=== PATIENT | female | born 1985 | race Caucasian/White ===

== ENCOUNTER 2016-12-02 16:18 | Emergency (ER) | payer SELFPAY ==
[2016-12-02 16:24] VITALS: BP 140/74
--- NOTE | 2016-12-02 17:14 | ER Document Report ---
ED Skin Rash/Insect Bite/Abscs - General Chief Complaint: Rash Stated Complaint: HAND PAIN Time Seen by Provider: 12/02/16 17:05 Mode of Arrival: Ambulatory Information source: Patient Notes: This is a 31-year-old female who presents with dry itchy and painful rash to her bilateral hands that has been present off and on for the past 6 months. The rash seems to be exacerbated by certain soaps. Patient has not seen her primary care physician for this. TRAVEL OUTSIDE OF THE [place] IN LAST 30 DAYS: No - Related Data Allergies/Adverse Reactions: milk Allergy (Verified 12/02/16 16:22) Penicillins Allergy (Verified 12/02/16 16:22) Past Medical History - Social History Smoking Status: Never Smoker Chew tobacco use (# tins/day): No Frequency of alcohol use: None Drug Abuse: None Family History: Reviewed & Not Pertinent Patient has suicidal ideation: No Patient has homicidal ideation: No Renal/ Medical History: Denies: Hx Peritoneal Dialysis Surgical Hx: Negative - Immunizations Hx Diphtheria, Pertussis, Tetanus Vaccination: No Review of Systems - Review of Systems Constitutional: No symptoms reported. denies: Chills, Fever EENT: No symptoms reported Cardiovascular: No symptoms reported Respiratory: No symptoms reported Gastrointestinal: No symptoms reported Genitourinary: No symptoms reported Musculoskeletal: No symptoms reported Skin: See HPI Hematologic/Lymphatic: No symptoms reported Neurological/Psychological: No symptoms reported Physical Exam - Vital signs Vitals: Temp Pulse Resp BP Pulse Ox 97.4 F 104 H 22 H 140/74 H 99 12/02/16 16:22 12/02/16 16:22 12/02/16 16:22 12/02/16 16:22 12/02/16 16:22 - General General appearance: Appears well In distress: None - HEENT Head: Normocephalic, Atraumatic Eyes: Normal - Respiratory Respiratory status: No respiratory distress Breath sounds: Normal - Cardiovascular Rhythm: Regular Heart sounds: Normal auscultation - Skin Skin Temperature: Warm Skin Moisture: Dry - Dry, scaly skin to bilateral palms most pronounced distally at base of fingers. No vessicles or papules. No drainage. DNVI. Course - Vital Signs Vital signs: Temp Pulse Resp BP Pulse Ox 97.4 F 104 H 22 H 140/74 H 99 12/02/16 16:22 12/02/16 16:22 12/02/16 16:22 12/02/16 16:22 12/02/16 16:22 Discharge - Discharge Clinical Impression: Hand eczema Condition: Stable Disposition: HOME, SELF-CARE Additional Instructions: Your rash is consistent with hand eczema. Avoid alcohol based hand sanitizers or any harsh soaps. Use the steroid cream as directed. Benadryl may help as well with the itching, as we discussed. Prescriptions: Triamcinolone Acetonide 15 gm TP BID #1 cream.gm.
== END 2016-12-02 17:17 | disposition home or self-care (01) ==
LOC: ER 16:18
DX: L30.9 Dermatitis, unspecified (principal); Z91.011 Allergy to milk products; Z88.0 Allergy status to penicillin
CPT/HCPCS: 99282